=== PATIENT | male | born 1940 | race Caucasian/White ===

== ENCOUNTER 2019-08-05 09:52 | Outpatient (CLI) | payer OTHER, SELFPAY ==
[2019-08-05 10:27] LABS: Basophils % 0.8 %; Eosinophils # 0.1 10^3/uL (0.0-0.8); Eosinophils % 3.1 %; Hematocrit 32.9 % (42.0-52.0); Hemoglobin 10.7 g/dL (11.7-16.6); Lymphocytes # 0.6 10^3/uL (0.8-4.8); Lymphocytes % 22.2 %; Mean Corpuscular HGB Conc 32.5 g/dL (30.0-36.0); Mean Corpuscular Hemoglobin 28.3 pg (28.0-34.0); Mean Platelet Volume 9.9 fL (7.4-10.4); Monocytes # 0.2 10^3/uL (0.2-0.9); Monocytes % 6.9 %; Neutrophils # 1.7 10^3/uL (1.8-7.7); Neutrophils % 66.6 %; Nucleated Red Blood Cells % 0 %; Platelet Count 126 10^3/cmm (130-400); Red Blood Count 3.78 10^6/uL (4.1-5.3); White Blood Count 2.6 10^3/uL (4.0-10.0)
[2019-08-05 10:59] LABS: Carcinoembryonic Antigen 1.3 ng/mL (0.0-4.7)
[2019-08-05 11:10] LABS: Alanine Aminotransferase 15 U/L (0-41); Albumin Level 3.7 g/dL (3.5-5.2); Alkaline Phosphatase 103 IU/L (40-130); Anion Gap 15.2 (5-19); Aspartate Amino Transferase 16 U/L (0-40); Blood Urea Nitrogen 24 mg/dL (8-23); Calcium 9.4 mg/dL (8.5-10.5); Carbon Dioxide 23 mmol/L (22-29); Chloride 106 mmol/L (98-107); Glucose 93 mg/dL (74-106); Potassium 4.2 mmol/L (3.5-5.1); Sodium 140 mmol/L (136-145); Total Bilirubin 0.5 mg/dL (0.15-1.2); Total Protein 6.7 g/dL (6.6-8.7)
== END 2019-08-05 09:53 | disposition home or self-care (01) ==
LOC: ONCMED 09:55
PROVIDERS: Family Provider Family Medicine; PCP Radiology Neuroradiology; Visit Provider Internal Medicine Hematology & Oncology
DX: C20 Malignant neoplasm of rectum (principal); N40.0 Benign prostatic hyperplasia without lower urinary tract symptoms; D72.819 Decreased white blood cell count, unspecified; Z93.3 Colostomy status; Z93.2 Ileostomy status; Z92.21 Personal history of antineoplastic chemotherapy; Z92.3 Personal history of irradiation; Z90.49 Acquired absence of other specified parts of digestive tract
CPT/HCPCS: 36591; 80053; 82378; 85025; G0463

== ENCOUNTER 2019-09-06 10:09 | Outpatient (CLI) | payer OTHER, SELFPAY ==
--- NOTE | 2019-09-06 11:07 | ONC FU_ITS ---
Dr. Mustafa follow up note Patient: Yandel Lau Unit #: [id number]: 1940 Dicatated By: Alan Mustafa M.D.Date of Visit:Sep 06, 2019 Onc Med Follow-up/Prog Note History of Present Illness: Mr. Lau, is a 70-[id number]-mcp gentleman with history of intermittent diarrhea and rectal bleeding for about 1 year. He was also found to be iron deficient. He had been treating the diarrhea with [id number] medicine intermittently for the last year. He was referred to Dr. Dave Dove for flexible sigmoidoscopy. On 10/17/2017 Dr. Ball performed endoscopy which revealed a circumferential mass within the rectum. The lumen was patent but the endoscope would not pass to the lumen. Biopsies were obtained which revealed mildly differentiated adenocarcinoma with invasion. The CEA was obtained on 10/25/2017 and was 0.9. It was noted that he had had about a 25 pound weight loss due to loss of appetite. Mr Lau had staging CT scan of abdomen & pelvis on 08/10/2017. The Scans were reported to show borderline splenomegaly; prominent prostatomegaly and small pericardial effusion. He has no new concerns.o pelvic lymphadenopathy noted. Mr. Lau was originally seen by Dr. Tafoya and Dr. Lopez in [facility]. Their treatment plan consisted of neoadjuvant chemotherapy/radiation therapy. However, due to transportation issues there was elected that he would come to [place] for treatment. s/p chemoradiation utilizing Xeloda for the chemotherapy agent. Mr. Lau was referred to the colorectal surgery department at [facility] for evaluation. He was seen by Dr. Geller on 03/21/18 and it was recommended that he complete neoadjuvant chemotherapy with FOLFOX and followed by MRI scan of pelvis. If there is a no evidence of disease then observe him as part of a non-operative management regimen. After he finish adjuvant FOLFOX ???12 then he will go back to Dr. Geller for evaluation with high-resolution pelvic MRI to be performed at [facility]. He started on FOLFOX x 12 on 04/30/2018. . Went to see Dr. Geller, colorectal surgeon at [facility], who did a rectal exam and sigmoidoscopy which showed no abnormality patient also underwent MRI scan of pelvis which showed no obvious abnormality, Dr. Geller recommended to continue with chemotherapy and finish recommended 12 doses of FOLFOX before surgical evaluation for surgery and Completed 12 doses of neoadjuvant chemotherapy with modified dose FOLFOX on 12/03/2018 On 04/02/2019 , Underwent laparoscopic resection low anterior diverting ileostomy loop with resection of descending colon polyp and final pathology report showed large intestine, rectum and sigmoid, low anterior resection showed moderately differentiated colonic adenocarcinoma infiltrating through muscularis propria into perirectal soft tissue, T3 next Negative for perineural or lymphovascular space invasion. Tumor present at distal cauterized tissue edge. Proximal margin negative. 13 lymph nodes, were examined, negative for metastatic disease. Polyps were benign, Positive surgical margin, was a concern, as per patient Dr. Geller informed him about this and suggested close follow-up. .Patient has persistent leukopenia and mild thrombocytopenia which appears multifactorial including underlying myelodysplasia. Patient recently underwent follow-up colonoscopy as he was considering colostomy reversal, as per patient Dr. Dove size small mass at anastomosis site and biopsy was done it confirm recurrence of disease. MRI scan pelvis was done on 09/04/2019 at [place] showed interval postsurgical changes of low anterior resection with mild enhancement at this anastomosis, no definite restricted mass seen. No suspicious lymphadenopathy Came for follow-up, denies any specific complaints, no fever or chills, no nausea or vomiting, no diarrhea constipation colostomy bag is working fine, patient scheduled for surgery with permanent colostomy on 09/17/2019 at [facility]. Medications: Tamsulosin HCl 1 Tablet (of 0.4 mg) Capsule Oral b.i.d. PRN Allergies: No Known Allergies. Review of Systems: Review of Systems is not available for this patient. Vital Signs: Performed on Sep 06, 2019 10:35 Height - 71.00 in Weight - 167.6 lbs (LOW) BSA - 1.96 sq.m BMI - 23.38 Temperature - 98.1 F (LOW) Pulse - 61 /min Respiration - 18 /min BP - 115/63 mm(hg) O2 Sat - 97 % Pain - 0 Performance Status: 0 - Fully active, able to carry on all predisease activities without restrictions. (ECOG) Physical Examination: ENMT - No oral exudates, ulcers, masses, thrush or mucositis. Oropharynx clear. Tongue normal, Respiratory - Lungs are clear to auscultation without rhonchi or wheezing, Cardiovascular - Regular rate and rhythm of heart, Abdomen - Non-tender, non-distended, Good bowel sounds. No guarding or rebound tenderness. No pulsatile masses, Extremities - no edema. Lab/Imaging: Test performed on Aug 05, 2019 10:00 Sodium 140 mmol/L Potassium 4.2 mmol/L Chloride 106 mmol/L CO2 23 mmol/L Anion Gap 15.2 BUN 24 mg/dL Creatinine 1.4 mg/dL Cr Clearance (Est) 47.16 mL/min Glucose 93 mg/dL Calcium 9.4 mg/dL Protein, Total 6.7 g/dL Albumin 3.7 g/dL Globulin 3.0 g/dL Bilirubin, Total 0.5 mg/dL ALT (SGPT) 15 U/L AST (SGOT) 16 U/L Alkaline Phosphatase 103 IU/L WBC 2.6 10 3/uL RBC 3.78 10 6/uL HGB 10.7 g/dL HCT 32.9 % MCV 87.0 fL MCH 28.3 pg MCHC 32.5 g/dL RDW 15.0 % Platelet Count 126 10 3/cmm MPV 9.9 fL Neutrophils 1.7 10 3/uL Lymphocytes 0.6 10 3/uL Monocytes 0.2 10 3/uL Eosinophils 0.1 10 3/uL Basophils 0.0 10 3/uL Neutrophil % 66.6 % Lymphocyte % 22.2 % Monocyte % 6.9 % Eosinophil % 3.1 % Basophils % 0.8 % CEA 1.3 ng/mL Impression: Adenocarcinoma of the low rectum status post flexible sigmoidoscopy done on 10/17/2017, near obstructing lesion with a normal CEA, clinically at least T3 lesion, Status post combined chemoradiation with Xeloda, starting 11/20/2017 through 01/01/2018 total 5040 rads Patient tolerated combined chemoradiation well with this significant improvement in his symptoms and now he was reluctant to go for surgery, case was discussed with local surgeon and considering complexity of surgery he Was referred to Department of colorectal surgery at [facility]. When he saw Dr. Geller on 03/21/2018 and he was recommended to complete neoadjuvant chemotherapy with FOLFOX x12 followed by high-resolution pelvic MRI scan and if it shows complete remission then observe him as a part of nonsurgical management He was started on modified dose FOLFOX ???12 on 04/30/2018.Completed neoadjuvant chemotherapy on 12/03/2018 oxaliplatin dose further reduced by 10% on 06/11/2018 due to progressive thrombocytopenia and mild peripheral neuropathy On 04/02/2019, underwent low anterior resection involving large intestine, rectum and sigmoid colon with end-to-end anastomosis And diverting ileostomy Final pathology showed tumor measures 4 cm, moderately differentiated colonic adenocarcinoma infiltrating through the muscularis propria into the perirectal soft tissue, pT3 13 lymph nodes were examined showed no evidence of metastatic disease, pN0 Distal margin was involved. History of iron deficiency anemia due to rectal bleed, now diagnosed with rectal cancer. Weight loss around 25 pounds BPH now on tamsulosin . Recently underwent MRI scan of pelvis at [facility] showed no obvious lesion, also seen by Dr. Isidro colorectal surgeon, as per discussion with him, no obvious lesion seen on sigmoidoscopy and suggested to continue with chemotherapy and complete told doses of FOLFOX before possible surgery.And completed recommended 12 dose of modified FOLFOX on 12/03/2018 Plan: Discussed with patient regarding his labs white blood count 2.6 and 1110.7 crit 32.9 platelets 126,000. ANC 1700 CMP within normal limit except creatinine 1.4 compared to 1.5 on 05/02/2019 and CEA is 1.3 Clinically, patient doing well with no new signs symptoms, colostomy bag is functioning fine, MRI scan of pelvis done at [facility] recently showed mild enhancement at the anastomosis, intervals postsurgical changes of low anterior resection. No definite mass or lymphadenopathy seen. But patient has biopsy-proven recurrence at colon anastomosis site. And now being considered for surgical intervention with permanent colostomy at [place]. Patient has mild this pancytopenia, white blood count is fluctuating, between mild leukopenia and normal counts and with mild thrombocytopenia. Etiology, considering his age could be underlying myelodysplasia. If there is a deterioration will consider bone marrow evaluation. Patient return to clinic in one month after surgery, with final pathology report, for evaluation Signed By: Alan Mustafa M.D. <<Signature on File>>
== END 2019-09-06 10:10 | disposition home or self-care (01) ==
PROVIDERS: Family Provider Family Medicine; PCP Radiology Neuroradiology; Visit Provider Internal Medicine Hematology & Oncology
DX: C20 Malignant neoplasm of rectum (principal); D61.818 Other pancytopenia; N40.0 Benign prostatic hyperplasia without lower urinary tract symptoms; Z45.2 Encounter for adjustment and management of vascular access device; Z79.899 Other long term (current) drug therapy; Z90.49 Acquired absence of other specified parts of digestive tract; Z98.0 Intestinal bypass and anastomosis status; Z92.21 Personal history of antineoplastic chemotherapy; Z92.3 Personal history of irradiation; Z93.2 Ileostomy status
CPT/HCPCS: 96523; G0463